=== PATIENT | female | born 1995 | race Caucasian/White ===

== ENCOUNTER 2020-01-04 09:35 | Emergency (ER) | payer OTHER ==
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
[2020-01-04 11:46] VITALS: BP 114/65
== END 2020-01-04 11:45 | disposition home or self-care (01) ==
LOC: ER 09:35
DX: S06.0X0A Concussion without loss of consciousness, initial encounter (principal); R51.9 Headache, unspecified; V49.40XA Driver injured in collision with unspecified motor vehicles in traffic accident, initial encounter
CPT/HCPCS: 99282